=== PATIENT | female | born 1965 | race Hispanic/Latino ===

== ENCOUNTER 2023-02-01 14:37 | Emergency (ER) | payer OTHER ==
[~2023-02-01] VITALS: Ht 162.6 cm; Wt 60.8 kg
[2023-02-01 15:04] VITALS: BP 140/84; PULSE 68; RESP 16
[2023-02-01 15:39] LABS: SARS-CoV-2, RNA, NAAT POSITIVE SARS CoV-2 (NEGATIVE)
[2023-02-01 15:41] LABS: INFLUENZA TYPE A NEGATIVE FOR TYPE A (NEGATIVE); INFLUENZA TYPE B NEGATIVE FOR TYPE B (NEGATIVE)
[2023-02-01] MEDS ORDERED: FLUT16H NASAL (17:11)
[2023-02-01] MEDS ORDERED: D-ME355L6 PO (17:11)
== END 2023-02-01 17:29 | disposition home or self-care (01) ==
LOC: EDH 14:37
DX: U07.1 COVID-19 (principal); R05.9 Cough, unspecified; R09.81 Nasal congestion
CPT/HCPCS: 99284; 71045; 87635; 87804 ×2; C9803

== ENCOUNTER 2024-09-07 15:35 | Emergency (ER) | payer BC, OTHER ==
[~2024-09-07] VITALS: Ht 157.5 cm; Wt 67.2 kg
[~2024-09-07 15:35] MED LIST: D-ME355L6 PO; FLUT16H NASAL
--- NOTE | 2024-09-07 15:53 | ERN ---
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 SHE STATES SHE HAD MILD EPIGASTRIC PAIN. SHE STATES SHE HAS NO PAIN AT THIS TIME NO FEVER NO CHILLS NO CHEST PAIN NO BACK PAIN. SHE DOES HAVE A HISTORY OF GASTRITIS. SHE IS ON PANTOPRAZOLE. Allergies: Coded Allergies: No Known Allergies (Unverified Allergy, Unknown, 02/01/23) Home Meds Active Scripts Fluticasone Propionate (Flonase Nasal [place]) 50 Mcg/Actuation [place], 1-2 SPRAY NASAL ONCE, #1 BOTTLE 0 Refills Prov:ANGELY GUIDO [facility] 02/01/23 D-Methorphan/Acetamin/Doxylamn (Coricidin Hbp Cold-Multi Sympt) 15 Mg-325 Mg- 6.25 Mg/15 Ml Liquid, 30 ML PO Q4HPRN PRN for COUGH/COLD SYMPTOMS, #1 BOTTLE 0 Refills Do not exceed 5 doses or 150 mL in 24 hours Prov:ANGELY GUIDO [facility] 02/01/23 Past Medical History Past Medical History: Hypertension Surgical History: Other Surgical History Other: back surgery History: Not Applicable RN Note Reviewed/Agreed w/PFSH: Yes Review of System Dictation CONSTITUTIONAL: NEGATIVE EXCEPT FOR HPI HEAD/FACE: NEGATIVE EXCEPT FOR HPI EENT: NEGATIVE EXCEPT FOR HPI RESPIRATORY: NEGATIVE EXCEPT FOR HPI GASTROINTESTINAL/ABDOMINAL: NEGATIVE EXCEPT FOR HPI NAUSEA AND VOMITING GENITOURINARY: NEGATIVE EXCEPT FOR HPI MUSCULOSKELETAL: NEGATIVE EXCEPT FOR HPI INTEGUMENTARY: NEGATIVE EXCEPT FOR HPI NEUROLOGICAL/PSYCH: NEGATIVE EXCEPT FOR HPI HEMATOLOGIC/LYMPHATIC: NEGATIVE EXCEPT FOR HPI ALL SYSTEMS NEGATIVE, EXCEPT NOTED ABOVE. 13 POINT REVIEW OF SYSTEMS ASSESSED AND ALL NEGATIVE EXCEPT FOR ABOVE. Initial Vital Sign VS Vital Signs Date Time Temp Pulse Resp B/P (MAP) Pulse Ox O2 Delivery O2 Flow Rate FiO2 09/07/24 15:38 98.2 77 16 183/98 95 Room Air 0 09/07/24 15:41 21 Physical Exam Dictation VITAL SIGNS REVIEWED GENERAL APPEARANCE: ALERT, ORIENTED X 3, NO ACUTE DISTRESS, WELL DEVELOPED, NOURISHED. HEAD AND FACE: NON-TRAUMATIC. EYES: PERRL, PINK CONJUNCTIVAS, EYELID NO TRAUMA, ANTERIOR CHAMBER WITH ARCUS SENILIS. EARS: PINNAS INTACT AND NO SIGNS OF TRAUMA OR ERYTHEMA EAR CANALS CLEAR AND NO DISCHARGE TM NO ERYTHEMA NOSE: NO DISCHARGE, NO BLEEDING. OROPHARYNX: MOUTH NORMAL, TONGUE PINK, PHARYNX CLEAR,NO ERYTHEMA, TONSILS NO EXUDATES, NO ABSCESSES NOTED, MUCOUS MEMBRANE MOIST NECK: SUPPLE, NON-TENDER, NO THYROMEGALY, NO MASSES, NO JVD, NO BRUITS BREAST:DEFERRED CHEST:NO TENDERNESS, NO CREPITUS, NO PARADOXICAL MOVEMENT, NO RETRACTIONS LUNGS:CLEAR, WELL-VENTILATED, SYMMETRIC, NO RALES, NO WHEEZING, NO RHONCHI, NO STRIDOR, GOOD BREATH SOUNDS BILATERALLY HEART: REGULAR RATE, REGULAR RHYTHM, NO MURMUR, NO GALLOPS VASCULAR: NO PERIPHERAL EDEMA, ABDOMEN: SOFT, POSITIVE BOWEL SOUNDS, NONDISTENDED, NO GUARDING, NONTENDER, NO REBOUND, NO MASSES NO HEPATOMEGALY, NO SPLENOMEGALY, NO CASTILLO'S SIGN, NO HERNIAS. NO FOCAL PAIN RECTAL: DEFERRED GENITAL: DEFERRED NEUROLOGICAL: NORMAL SPEECH, MOTOR FUNCTION INTACT, SENSORY FUNCTION INTACT MUSCULOSKELETAL: NECK NONTENDER, FULL RANGE OF MOTION, BACK NONTENDER, FULL RANGE OF MOTION, EXTREMITIES: NONTENDER, FULL RANGE OF MOTION SKIN: COLOR PINK, DRY, NO TURGOR, NO RASH, NO LACERATIONS, NO ABRASIONS, NO CONTUSIONS. LYMPHATIC: DEFERRED Results (Laboratory/Radiology) Laboratory/Radiology Laboratory Tests Test 09/07/24 15:57 09/07/24 16:01 Urine Color YELLOW (YELLOW) Urine Appearance CLEAR (CLEAR) Urine pH 6.0 (5.0-8.0) Urine Specific [place] 1.019 (1.001-1.031) Urine Protein 10 mg/dL (NEGATIVE) H Urine Glucose (UA) NEGATIVE mg/dL (NEGATIVE) Urine Ketones 5 mg/dL (NEGATIVE) H Urine Occult Blood SMALL (NEGATIVE) H Urine Nitrate NEGATIVE (NEGATIVE) Urine Bilirubin NEGATIVE mg/dL (NEGATIVE) Urine Urobilinogen 3 mg/dL (0.2-1.0) H Urine Leukocyte Esterase NEGATIVE Zev/uL Urine RBC 11-25 /HPF (0-1) H Urine WBC 2-5 /HPF (0-1) H Urine Squamous Epithelial Cells FEW /HPF (0-2) Urine Bacteria None /HPF (None Seen) White Blood Count 14.2 K/uL (4.8-10.8) H Red Blood Count 5.11 MIL/uL (4.00-5.50) Hemoglobin 15.4 g/dL (12.0-16.0) Hematocrit 45.2 % (36-48) Mean Corpuscular Volume 88.5 fL (79-99) Mean Corpuscular Hemoglobin 30.1 pg (27.0-33.0) Mean Corpuscular Hemoglobin Concent 34.1 g/dL (32.0-36.0) Red Cell Distribution Width 15.9 % (11.0-15.5) H Platelet Count 317 K/uL (130-400) Mean Platelet Volume 8.3 fL (7.5-10.5) Immature Granulocyte % (Auto) 0.4 % (0-1) Neutrophils (%) (Auto) 66.4 % (40.0-77.0) Lymphocytes (%) (Auto) 23.2 % (21.0-51.0) Monocytes (%) (Auto) 8.3 % (3.0-13.0) Eosinophils (%) (Auto) 1.1 % (0.0-8.0) Basophils (%) (Auto) 0.6 % (0.0-5.0) Neutrophils # (Auto) 9.4 K/uL (1.8-7.7) H Lymphocytes # (Auto) 3.3 K/uL (1.0-4.8) Monocytes # (Auto) 1.2 K/uL (0.1-1.0) H Eosinophils # (Auto) 0.15 K/uL (0.00-0.70) Basophils # (Auto) 0.09 K/uL (0.00-0.20) Absolute Immature Granulocyte (auto 0.06 K/uL (0-1) Nucleated Red Blood Cells 0.0 % (0.0-0.19) Sodium Level 139 mmol/L (136-145) Potassium Level 4.2 mmol/L (3.5-5.1) Chloride Level 104 mmol/L (101-111) Carbon Dioxide Level 28 mmol/L (21-32) Blood Urea Nitrogen 12 mg/dL (7-18) Creatinine 0.7 mg/dL (0.5-1.0) Glomerular Filtration Rate Calc 100 mL/min (>90) Random Glucose 114 mg/dL (70-105) H Total Calcium 9.1 mg/dL (8.5-10.1) Lipase 32 U/L (16-77) Labs Reviewed?: Yes ED Course ED Course Orders Procedure Category Date Status Time Cbc With Differential LAB 09/07/24 Complete 15:49 Urinalysis Profile LAB 09/07/24 Complete 15:49 Lipase LAB 09/07/24 Complete 15:49 Basic Metabolic Panel LAB 09/07/24 Complete 15:49 Vital Signs Date Time Temp Pulse Resp B/P (MAP) Pulse Ox O2 Delivery O2 Flow Rate FiO2 09/07/24 15:41 98.2 77 16 183/98 95 Room Air* 0 21 09/07/24 15:38 98.2 77 16 183/98 95 Room Air 0 1645/WITH PATIENT AT LENGTH REGARDING CLINICAL FINDINGS. SHE HAS TAKEN PANTOPRAZOLE AND WAS TOLD TO CONTINUE. ADDITIONALLY SHE HAS SOME DENTAL DECAY AND HAS BEEN TAKING AMOXICILLIN OV [id number] FROM [facility] I TOLD HER I WOULD PRESCRIBED CLINDAMYCIN ALSO GAVE HER INFORMATION ON A BLAND DIET WITH WATER FOR FLUIDS ONLY NO ALCOHOL NO TOBACCO NO CITRUS FRUIT JUICE NO COFFEE NO TEA UNTIL CLEARED BY A DOCTOR MONDAY SHE SAID SHE WILL GO TO [facility] [place] MONDAY Medical Decision Making MDM MEDICAL DECISION-MAKING BASED ON BASIC LABS AND URINALYSIS FOR NAUSEA VOMITING. LABS UNREMARKABLE OTHER THAN [id number] WBCS STRONGLY SUSPECT THIS IS REACTIVE AFTER VOMITING YESTERDAY. WE WILL DISCHARGE PATIENT HOME WITH BLAND DIET STOP ALCOHOL USE AND NO SMOKING WE WILL GIVE HER CLINDAMYCIN FOR DENTALGIA AND HAVE HER SEE YOUR DOCTOR DX & DISP Disposition: Discharge Departure Impression: Primary Impression: Food poisoning Additional Impressions: Nausea & vomiting, Hyperglycemia, Leukocytosis Condition: Stable Scripts Clindamycin HCl (Clindamycin HCl) 300 Mg Capsule 1 CAP PO QID for 10 Days, #40 CAP 0 Refills Prov: MEKHI MANCIA BEEF TRIMMER 09/07/24 Additional Instructions: FOLLOW-UP WITH PRIMARY CARE PROVIDER IN 1 TO 2 DAYS. TAKE MEDICATIONS DIRECT ED HERE IN THE EMERGENCY ROOM. OKAY TO CONTINUE HOME MEDICATIONS UNLESS OTHERWISE DISCUSSED DURING YOUR VISIT IN THE EMERGENCY ROOM TODAY. RETURN TO YOUR NEAREST EMERGENCY ROOM IF SYMPTOMS WORSEN OR IF THERE IS NO IMPROVEMENT. CALL 911 IF YOU NEED IMMEDIATE ASSISTANCE. TAKE TYLENOL OR MOTRIN [id number] NEEDED AND IF NO CONTRAINDICATIONS ARE PRESENT. INCREASE ORAL HYDRATION. A WOUND CULTURE OR URINE CULTURE WAS ORDERED HERE IN THE EMERGENCY ROOM DEPARTMENT PLEASE FOLLOW-UP WITH PRIMARY CARE PROVIDER AND ADVISE THEM TO GET REPEAT PORTS FROM OUR FACILITY. IF YOU HAD ANY SOLOMON WRAP/SPLINTS THAT WERE APPLIED HERE, PLEASE DO NOT REMOVE THEM UNTIL YOU SEE YOUR PRIMARY CARE OR SPECIALTY. FOLLOW A BLAND DIET WITH WATER FOR FLUIDS ONLY. NO ALCOHOL, NO TOBACCO, NO SPICY FOODS, NO ICE TEA, NO COFFEE AND NO CITRUS FRUIT JUICE UNTIL CLEARED BY YOUR DOCTOR AT [facility] ON MONDAY. NO WORK UNTIL CLEARED BACK BY YOUR PRIMARY CARE DOCTOR MONDAY. Referrals: NONE (PCP) Time of Disposition: 16:46 I have reviewed the case, and I agree with, Diagnosis and Plan MEKHI MANCIA BEEF TRIMMER Sep 07, 2024 15:53
[2024-09-07 16:09] LABS: IMMATURE GRANULOCYTE ABSOLUTE 0.06 K/uL (0-1); NUCLEATED RED BLOOD CELLS 0.0 % (0.0-0.19); PLATELET COUNT (AUTO) 317 K/uL (130-400); RED BLOOD CELL COUNT(AUTO) 5.11 MIL/uL (4.00-5.50); RED CELL DISTRIBUTION WIDTH 15.9 % (11.0-15.5); WHITE BLOOD COUNT (AUTO) 14.2 K/uL (4.8-10.8)
[2024-09-07 16:14] LABS: ADD UA MICROSCOPIC YES; APPEARANCE,URINE CLEAR (CLEAR); GLUCOSE, URINE (UA) NEGATIVE (NEGATIVE); LEUKOCYTE ESTERASE ,URINE NEGATIVE Leu/uL (NEGATIVE); NITRATE,URINE NEGATIVE (NEGATIVE); OCCULT BLOOD,URINE SMALL (NEGATIVE)
[2024-09-07 16:16] LABS: CREATININE 0.7 mg/dL (0.5-1.0); GLOMERULAR FILTR. RATE CALC 100.0 mL/min (>90); GLUCOSE,RANDOM 114.0 mg/dL (70-105); SODIUM SERUM 139.0 mmol/L (136-145); UREA NITROGEN, BLOOD 12.0 mg/dL (7-18)
[2024-09-07 16:16] LABS: SQUAMOUS EPITHELIAL CELL,UR FEW /HPF (0-2)
[2024-09-07] MEDS ORDERED: CLIN-141 PO (16:46)
[2024-09-07 16:49] VITALS: BP 180/88; PULSE 75; RESP 16; TEMP 98.3; O2SAT 95
== END 2024-09-07 16:57 | disposition home or self-care (01) ==
LOC: EDH 15:35
DX: A05.9 Bacterial foodborne intoxication, unspecified (principal); R11.2 Nausea with vomiting, unspecified; R73.9 Hyperglycemia, unspecified; D72.829 Elevated white blood cell count, unspecified; I10 Essential (primary) hypertension; Z79.899 Other long term (current) drug therapy
CPT/HCPCS: 36415; 80048; 81001; 83690; 85025; 99283